=== PATIENT | male | born 1990 | race Caucasian/White ===

== ENCOUNTER 2019-05-21 00:59 | Emergency (ER) | payer OTHER ==
[~2019-05-21] VITALS: Ht 182.9 cm; Wt 91.5 kg
[2019-05-21 01:23] VITALS: BP 128/78
[2019-05-21] MEDS ORDERED: ketorolac tromethamine 15mg/ml inj. IM ONE (02:40)
[2019-05-21] MEDS ORDERED: HYDROcodone/acetaminophen 5mg/325mg tablet PO ONE (02:45)
[2019-05-21] MEDS ORDERED: ACET-2615 PO (02:45)
[2019-05-21] MEDS ORDERED: acetaminophen 325mg tablet PO ONE (02:45)
== END 2019-05-21 03:00 | disposition home or self-care (01) ==
LOC: ER 01:00
DX: M25.511 Pain in right shoulder (principal); R20.2 Paresthesia of skin; Z79.899 Other long term (current) drug therapy
CPT/HCPCS: 96372; 99283; J1885